=== PATIENT | male | born 1955 | race Caucasian/White ===

== ENCOUNTER 2018-09-07 06:24 | Day surgery (SDC) | payer MEDICAID ==
[2018-08-31 15:58] LABS: BASOPHILS % (AUTO) 0.5 % (0-1); EOSINOPHILS # (AUTO) 0.1 X10'3 (0-0.9); LYMPHOCYTES # (AUTO) 1.7 X10'3 (1.1-4.8); LYMPHOCYTES % (AUTO) 23.2 % (21-51); MEAN CORPUSCULAR HEMOGLOBIN 29.5 PG (27.0-31.0); MEAN CORPUSCULAR HGB CONC 33.3 g/dL (33.0-36.5); MEAN CORPUSCULAR VOLUME 88.5 FL (78-98); MEAN PLATELET VOLUME 7.5 FL (7.4-10.4); MONOCYTES # (AUTO) 0.8 X10'3 (0-0.9); MONOCYTES % (AUTO) 11.1 % (2-12); NEUTROPHILS # (AUTO) 4.5 X10'3 (1.8-7.7); NEUTROPHILS % (AUTO) 63.2 % (42-75); PRE OP HEMATOCRIT 47.5 % (42.0-52.0); PRE OP HEMOGLOBIN 15.8 g/dL (14.0-17.9); PRE OP PLATELET COUNT 351 X10'3 (140-440); RED BLOOD COUNT 5.37 X10'6 (4.70-6.10); RED CELL DISTRIBUTION WIDTH 12.8 % (11.5-14.5)
[2018-08-31 16:03] LABS: PRE OP INR 1.1 INR; PRE OP PROTIME 10.7 SECONDS (9.0-12.0)
[2018-08-31 16:04] LABS: ALBUMIN 3.9 G/DL (3.4-5.0); ALBUMIN/GLOBULIN RATIO 1.1 (1.1-1.5); ALKALINE PHOSPHATASE 116 IU/L (46-116); BLOOD UREA NITROGEN 16 MG/DL (7-18); BUN/CREATININE RATIO 22.5 (5.4-32.0); CALCIUM 8.7 MG/DL (8.5-10.1); CHLORIDE 100 MMOL/L (99-107); CREATININE 0.71 MG/DL (0.60-1.10); PRE OP ALT 30 U/L (30-65); PRE OP ANION GAP 9 (8-16); PRE OP AST 8 U/L (10-37); PRE OP BILIRUB, TOTAL 0.6 MG/DL (0.0-1.0); PRE OP GLUCOSE 84 MG/DL (70-104); PRE OP POTASSIUM 3.8 MMOL/L (3.4-5.1); PRE OP SODIUM 137 MMOL/L (135-145); TOTAL CARBON DIOXIDE 27.6 MMOL/L (24-32); TOTAL PROTEIN 7.3 G/DL (6.4-8.2); eGFR > 90 ML/MIN
[~2018-09-07] VITALS: Ht 167.6 cm; Wt 110.2 kg
[2018-09-07] VITALS (7 sets, daily range): BP systolic 117–156; BP diastolic 62–88
[~2018-09-07 06:24] MED LIST: AMLO2.5T2 PO; CARV-50 PO; DICL100G15 TOP; DOCUMENT DATE & TIME OF BETA-BLOCKER PO ONE; FURO80TA87 PO; LOSA50TA3 PO; OMEP20TA5 PO; POTA20TA19 PO
[2018-09-07] MEDS ORDERED: BUPIVAcaine/PF 2.5mg/ml (0.25%) 10ml vial ONE (06:43)
[2018-09-07] MEDS ORDERED: ringers solution, lacted 1,000 ML IV SCH ×2 (06:45→09:16)
[2018-09-07] MEDS ORDERED: cefazolin/dext.iso 2gm/100 ML IV ONE (06:45)
[2018-09-07] MEDS ORDERED: famotidine 20mg tablet PO ONE (06:45)
[2018-09-07] MEDS ORDERED: midazolam 2 mg/2 ml injection ONE (08:29)
[2018-09-07] MEDS ORDERED: sevoflurane 250ml liquid IH ONE (08:29)
[2018-09-07] MEDS ORDERED: fentaNYL /PF 50mcg/ml 5ml ampule ONE (08:44)
[2018-09-07] MEDS ORDERED: succinylcholine 20mg/ml inj IV ONE (09:11)
[2018-09-07] MEDS ORDERED: LIDOcaine 2% (20mg/ml) 5ml vial ONE (09:11)
[2018-09-07] MEDS ORDERED: rocuronium 10mg/ml inj IV ONE (09:11)
[2018-09-07] MEDS ORDERED: propofol inj 20 ML IV ONE (09:11)
[2018-09-07] MEDS ORDERED: ondansetron/PF 4mg/2ml inj ONE (09:12)
[2018-09-07] MEDS ORDERED: dexamethasone sod phosphate 4mg/ml inj. ONE (09:12)
[2018-09-07] MEDS ORDERED: neostigmine methylsulfate 1 MG/ML 10ml vial ONE (09:12)
[2018-09-07] MEDS ORDERED: glycopyrrolate 0.2mg/ml inj ONE (09:12)
[2018-09-07] MEDS ORDERED: ondansetron/PF 4mg/2ml inj IV PRN (09:20)
[2018-09-07] MEDS ORDERED: meperidine/PF 25mg/ml syringe IV PRN ×3 (09:20)
[2018-09-07] MEDS ORDERED: morphine 4 MG/ML inj SYRINge IV PRN ×2 (09:20)
[2018-09-07] MEDS ORDERED: proCHLORperazine 10 MG/2 ml inj IV PRN (09:20)
--- NOTE | 2018-09-07 09:26 | NUR ---
Received from OR via , accompanied by Anesthesiologist ASHLEE, and report given by Anesthesiolgist. AWAKE IN NO RESP DISTRESS SKIN WARM AND DRY HOB AND LUE ELEVATED, FINGERS LEFEET ARM PINK GOOD CAP REFILL, NO CO PAIN, DSG DI, ICE TO WRIST.
[2018-09-07] MEDS ORDERED: HYDROcodone/acetaminophen 10/325mg tab PO ONE (09:55)
--- NOTE | 2018-09-07 10:26 | NUR ---
AWAKE VS WNL, CO PAIN LEFT WRIST MED PO WITH GOOD RESULTS, FINGERS WARM PINK GOOD CAP REFILL, MOVES FINGERS, DSG DI, ICE TO WRIST, DISCH INSTR GIVEN TOPT AND UNDERSTOOD. DR PAEZ IN TO SEE PT, SCRIPT WILL BE CALLED TO PTS PHARMACY IN [place]. PT REQUESTED AND GIVEN PAIN PILL BEFORE DISCH. PT IN NO RESP DISTRESS ON RA NO SLEEP APNEA NOTED PT STATES HIS BREATHING IS FINE. SPO2 95% HOME
== END 2018-09-07 10:26 | disposition home or self-care (01) ==
LOC: PAS 06:24
PROVIDERS: ATTEND Orthopaedic Surgery Hand Surgery
DX: S63.592A Other specified sprain of left wrist, initial encounter (principal); M65.842 Other synovitis and tenosynovitis, left hand; G47.33 Obstructive sleep apnea (adult) (pediatric); I10 Essential (primary) hypertension; N40.0 Benign prostatic hyperplasia without lower urinary tract symptoms; M19.90 Unspecified osteoarthritis, unspecified site; Z91.030 Bee allergy status; Z87.891 Personal history of nicotine dependence; Z79.82 Long term (current) use of aspirin; Z79.01 Long term (current) use of anticoagulants; Z98.890 Other specified postprocedural states; Z79.899 Other long term (current) drug therapy; X58.XXXA Exposure to other specified factors, initial encounter; Y93.89 Activity, other specified; Y92.89 Other specified places as the place of occurrence of the external cause; Y99.8 Other external cause status
CPT/HCPCS: 29846; 36415; 80053; 82948; 85025; 85610; 85730; J0330; J1100; J2001; J2250; J2405; J2704; J2710; J3010; J3490; J7120; A4215; A4618; A7000